=== PATIENT | female | born 1945 | race Caucasian/White ===

== ENCOUNTER → 2016-10-16 | Outpatient (CLI) | payer MEDICARE, BC | END | disposition home or self-care (01) | LOC: RAD 13:23 | PROVIDERS: ATTEND Neurological Surgery | DX: M41.86 Other forms of scoliosis, lumbar region (principal); M47.897 Other spondylosis, lumbosacral region; M47.892 Other spondylosis, cervical region; Z98.890 Other specified postprocedural states | CPT/HCPCS: 72082 ==

== ENCOUNTER → 2017-01-22 | Outpatient (CLI) | payer MEDICARE, BC | END | disposition home or self-care (01) | LOC: RAD 12:01 | PROVIDERS: ATTEND Neurological Surgery | DX: M41.85 Other forms of scoliosis, thoracolumbar region (principal); Z98.1 Arthrodesis status | CPT/HCPCS: 72082 ==

== ENCOUNTER → 2018-01-08 | Outpatient (CLI) | payer MEDICARE, BC | END | disposition home or self-care (01) | LOC: RAD 11:50 | PROVIDERS: ATTEND Neurological Surgery | DX: M41.86 Other forms of scoliosis, lumbar region (principal) | CPT/HCPCS: 72082 ==

== ENCOUNTER → 2018-11-14 | Outpatient (CLI) | payer MEDICARE, BC ==
[~2018-11-14] MED LIST: ACET-1757 PO; ASCO10004 PO; ASPI-496 PO; BIMA2.5D EACHEYE; C,E,1CAP2 PO; CALC-483 PO; CHOL40002 PO; CRAN250C PO; ECHI400C12 PO; FEXO180T72 PO; GINK30CA2 PO; IBUP-1484 PO; LACT1CAP37 PO; LECI1200 PO; MULT-516 PO; OMEG-157 PO; RABE20TA18 PO; UBID100C24 PO; VITA1TAB19 PO; VITA400T6 PO; gentle iron PO
== END | disposition home or self-care (01) ==
LOC: STAR 13:22
PROVIDERS: ATTEND Internal Medicine Gastroenterology
DX: Z01.818 Encounter for other preprocedural examination (principal); K86.89 Other specified diseases of pancreas; Z88.0 Allergy status to penicillin; Z91.011 Allergy to milk products; Z88.8 Allergy status to other drugs, medicaments and biological substances; Z91.048 Other nonmedicinal substance allergy status
CPT/HCPCS: 93005

== ENCOUNTER 2018-11-21 05:45 | Day surgery (SDC) | payer MEDICARE, BC ==
[~2018-11-21] VITALS: Ht 167.6 cm; Wt 55.0 kg
[2018-11-21] MEDS ORDERED: LACTATED RINGERS 1,000 ML IV SCH (06:25)
[2018-11-21 06:31] VITALS: BP 120/80
[2018-11-21] MEDS ORDERED: CHLORHEXIDINE 15 ML UDC ONE (06:48)
[2018-11-21] MEDS ORDERED: PROPOFOL 10 MG/ML, 20ML ONE ×2 (06:56→07:47)
[2018-11-21] MEDS ORDERED: PIPERACILLIN/TAZO/PMX 3.375GM 50 ML ONE (07:04)
[2018-11-21] MEDS ORDERED: CLINDAMYCIN PMX 600MG/50ML 50 ML IVPB ONE (08:00)
[2018-11-21 10:49] LABS: CREATININE 0.74 mg/dL (0.55-1.02)
[2018-11-21] MEDS ORDERED: OMNIPAQUE 350 MG/ML, 100ML BOTTLE ONE (12:24)
== END 2018-11-21 13:00 | disposition home or self-care (01) ==
LOC: OUT 05:45
PROVIDERS: ATTEND Internal Medicine Gastroenterology
DX: K86.89 Other specified diseases of pancreas (principal); K44.9 Diaphragmatic hernia without obstruction or gangrene; K21.9 Gastro-esophageal reflux disease without esophagitis; I48.91 Unspecified atrial fibrillation; Z98.890 Other specified postprocedural states; Z79.82 Long term (current) use of aspirin; Z88.8 Allergy status to other drugs, medicaments and biological substances; Z88.0 Allergy status to penicillin; Z88.4 Allergy status to anesthetic agent; Z91.011 Allergy to milk products; Z72.89 Other problems related to lifestyle; Z87.891 Personal history of nicotine dependence; Z91.040 Latex allergy status
CPT/HCPCS: 36415; 43239; 43259; 74170; 82565; 86301; 88305; J2704; Q9967; J2543

== ENCOUNTER → 2018-12-20 | Outpatient (CLI) | payer MEDICARE, BC | END | disposition home or self-care (01) | LOC: RAD 11:57 | PROVIDERS: ATTEND Neurological Surgery | DX: M54.5 Low back pain (principal); M41.9 Scoliosis, unspecified | CPT/HCPCS: 72082 ==

== ENCOUNTER → 2019-10-14 | Outpatient (CLI) | payer MEDICARE, BC ==
[~2019-10-14] MED LIST changes: -ACET-1757 PO; +ACET-2065 PO; -IBUP-1484 PO; +IBUP-1902 PO
== END | disposition home or self-care (01) ==
LOC: RAD 16:36
PROVIDERS: ATTEND Orthopaedic Surgery
DX: S33.39XA Dislocation of other parts of lumbar spine and pelvis, initial encounter (principal); M40.293 Other kyphosis, cervicothoracic region; M43.24 Fusion of spine, thoracic region; X58.XXXA Exposure to other specified factors, initial encounter; Y93.89 Activity, other specified; Y92.89 Other specified places as the place of occurrence of the external cause; Y99.8 Other external cause status
CPT/HCPCS: 72082

== ENCOUNTER → 2020-12-20 | Outpatient (CLI) | payer MEDICARE, BC ==
[~2020-12-20] MED LIST changes: +ASCO100018 PO; -ASCO10004 PO; -LECI1200 PO; +[UNRECOGNIZED DRUG - CODE] PO
== END | disposition home or self-care (01) ==
LOC: RAD 13:30
PROVIDERS: ATTEND Neurological Surgery
DX: S13.140A Subluxation of C3/C4 cervical vertebrae, initial encounter (principal); M50.31 Other cervical disc degeneration, high cervical region; M25.78 Osteophyte, vertebrae; M40.292 Other kyphosis, cervical region; X58.XXXA Exposure to other specified factors, initial encounter; Y93.89 Activity, other specified; Y92.89 Other specified places as the place of occurrence of the external cause; Y99.8 Other external cause status
CPT/HCPCS: 72050; 72082